=== PATIENT | female | born 1955 | race Caucasian/White ===

== ENCOUNTER 2019-04-03 13:15 | Inpatient (IN) ==
[2019-04-03] MEDS ORDERED: ASPIRIN PO ONE (13:33)
[2019-04-03] MEDS ORDERED: DUONEB (A & A) ONE (13:52)
[2019-04-03] MEDS ORDERED: DUONEB (A & A) INH ONE (14:02)
--- NOTE | 2019-04-03 14:24 | Diag Imaging Result Doc PS360 ---
CHEST-PORTABLE - 04/03/2019 INDICATION: sob COMPARISON: None FINDINGS: There is cardiomegaly and pulmonary vascular congestion. There is probably mild interstitial pulmonary edema. No pneumothorax or large pleural effusion. IMPRESSION: Cardiomegaly and mild pulmonary edema. Electronically signed by Aniket Lind 04/03/2019 2:22 PM
--- NOTE | 2019-04-03 14:40 | EKG Report ---
Test Performed on : 04/03/2019 1:49:58 PM Test Reason : sob Blood Pressure : / mmHG Vent. Rate : 083 BPM Atrial Rate : 089 BPM P-R Int : 000 ms QRS Dur : 074 ms QT Int : 372 ms P-R-T Axes : 000 086 103 degrees QTc Int : 437 ms Atrial fibrillation. Septal infarct , age undetermined Abnormal ECG No previous ECGs available Unconfirmed Result
[2019-04-03 14:41] LABS: BE 4.9 mmoll (-3.0-3.0); BLOOD TYPE ARTERIAL; METHB 1.1 % (0.0-1.5); PCO2(98.6) 49 mmHg (35-45); SAMPLE BLOOD; SAO2 76.3 % (95.0-100.0); THB 18.6 g/dL (11.5-17.4); pH(98.6) 7.41 (7.35-7.45)
[2019-04-03 14:45] LABS: HCO3-(ACT) 27.7 mmoll (20.0-26.0); O2HB 69.2 % (95.0-99.0); PO2(98.6) 35 mmHg (60-100)
[2019-04-03 14:46] LABS: ALLEN TEST YES; MODALITY ROOM AIR
[2019-04-03 15:05] LABS: BASO# 0.07 X1000 (0.0-0.2); BASO% 1.1 % (0.0-0.8); EOS# 0.04 X1000 (0.0-0.7); EOS% 0.6 % (0.0-10.0); HEMOGLOBIN 17.4 g/dL (12.0-16.0); IMM GRAN# 0.02 X1000 (0.0-0.04); IMM GRAN% 0.3 % (0.0-0.5); LYMPH# 2.39 X1000 (1.2-3.4); LYMPH% 37.2 % (20.5-51.1); MCH 31.1 PG (27-31); MCHC 31.1 g/dL (33-37); MCV 100.2 FL (81-99); MONO# 0.86 X1000 (0.11-0.59); MONO% 13.4 % (1.7-9.3); NEUT# 3.05 X1000 (1.4-6.5); NEUT% 47.4 % (42.2-75.2); PLT 128 X1000 (130-400); RBC 5.59 XMIL (4.2-5.4); RDW 21.5 % (11.5-14.5); WBC 6.43 X1000 (4.8-10.8)
[2019-04-03 15:15] LABS: INR 1.02; PROTIME 13.9 Seconds (11.0-16.0)
[2019-04-03 15:16] LABS: PTT 32.9 Seconds (22.3-41.8)
[2019-04-03 15:25] LABS: AGAP 13; ALBUMIN 3.8 g/dL (3.5-5.0); ALKALINE PHOSPHATASE 82 U/L (32-104); BUN 10 mg/dL (8-22); CALCIUM 8.7 mg/dL (8.8-10.2); CHLORIDE 100 mmol/L (98-107); CK PROFILE 32 U/L (24-173); COSMO 278; CREATININE 0.4 mg/dL (0.5-0.9); ESTIMATED GFR > 60; GLUCOSE 129 mg/dL (70-104); GOT 18 U/L (10-30); GPT 9 U/L (10-36); POTASSIUM 3.9 mmol/L (3.5-5.1); SODIUM 139 mmol/L (136-145); TCO2 27 mmol/L (25-35); TOTAL PROTEIN 6.6 g/dL (6.3-8.3)
[2019-04-03 16:05] LABS: INFLUENZA A NEGATIVE (NEGATIVE); INFLUENZA B NEGATIVE (NEGATIVE)
--- NOTE | 2019-04-03 16:41 | PROVIDER DOCUMENTATION ---
This chart was entered by Antonella Garcia Scribe, acting as scribe for Alvina Olivas MD. HPI-Respiratory General - General Chief Complaint: SEPSIS ALERT Stated Complaint: COUGH / SOB Time Seen by Provider: 04/03/19 13:33 Source: patient Allergies/Adverse Reactions: Patient Allergies Allergy/AdvReac Type Severity Reaction Status Date / Time No Known Allergies Allergy Verified 04/03/19 13:31 Home Medications: Home Medication List Medication Instructions Recorded Confirmed Last Taken Type Apixaban [Eliquis] 5 mg PO DAILY 04/03/19 04/03/19 04/03/19 History Diltiazem C.d. [Cardizem C.d] 120 mg PO DAILY 04/03/19 04/03/19 04/03/19 History Escitalopram [Lexapro] 10 mg PO DAILY 04/03/19 04/03/19 04/03/19 History Furosemide [Lasix] 20 mg PO DAILY 04/03/19 04/03/19 04/03/19 History Levothyroxine [Synthroid] 125 microgm PO DAILY 04/03/19 04/03/19 04/03/19 History Losartan [Cozaar] 25 mg PO DAILY 04/03/19 04/03/19 04/03/19 History Metformin [Glucophage] 500 mg PO DAILY 04/03/19 04/03/19 04/03/19 History PRAVAstatin [Pravachol] 40 mg PO DAILY 04/03/19 04/03/19 04/03/19 History Potassium Chloride 20 meq PO DAILY 04/03/19 04/03/19 04/03/19 History - History of Present Illness-Resp Nature of Presenting Problem: Patient is a 63 year old female who presents with shortness of breath. States headache and cough with shortness of breath. Patient's O2 sat was 81% on room air on arrival to ED. Denies chest pain. Reports she is a smoker. History of CHF. Quality of Pain: reports: none Severity in ED: reports: moderate Onset/Duration: reports: gradual Timing: reports: still present Cough Quality/Degree: reports: moderate Current Respiratory Medication Therapy: Initiated see nurses note Associated Symptoms: reports: cough, headache, shortness of breath Similar Symptoms Previously?: Yes Recently seen or treated by another doctor?: No Review of Systems - Adult - REVIEW OF SYSTEMS - ADULT Constitutional: reports: no symptoms reported Eyes: reports: no symptoms reported Ears, Nose, Mouth & Throat: reports: no symptoms reported Cardiovascular: reports: no symptoms reported Respiratory: reports: see HPI, cough, shortness of breath. denies: wheezing Gastrointestinal: reports: no symptoms reported Genitourinary: reports: no symptoms reported Musculoskeletal: reports: no symptoms reported Integumentary: reports: no symptoms reported Neurological: reports: see HPI, headache/migraines (BARCENAS). denies: dizziness/vertigo, syncope Psychiatric: reports: no symptoms reported Endocrine: reports: no symptoms reported Hematologic/Lymphatic: reports: no symptoms reported Allergic/Immunologic: reports: no symptoms reported All Other Systems: Reviewed and Negative Past History - Adult - PAST MEDICAL HISTORY-ADULT Review of Records: reports: Old Records Reviewed, Nursing Assessment Review, Med ications Reviewed, Social history reviewed & non-contributory. Major Childhood Illnesses: reports: denies history Cardiovascular: reports: CHF Respiratory: reports: denies history Gastrointestinal: reports: denies history Obstetrical/Gynecological: reports: denies history Genitourinary: reports: denies history Musculoskeletal: reports: denies history Neurological: reports: denies history Endocrine/Immune: reports: denies history Other Conditions: reports: denies history - PRIOR SURGERIES/PROCEDURES Surgical/Procedure History: reports: reviewed, not pertinent - IMMUNIZATION STATUS Childhood Immunizations: See Nurse Assessment Flu Vaccine: See Nurse Assessment - FAMILY HISTORY Family History: reviewed, not pertinent - SOCIAL HISTORY Smoking: cigarettes, less than 1 pack/day Provider spent 3-5 mins advising pt. on dangers of tobacco.: Discussed manners to quit use, and f/u contacts for add'l counseling. Substance Use: denies Living Situation: family Physical Exam-General - PHYSICAL EXAM-ADULT Initial Vital Signs Reviewed: Yes - CONSTITUTIONAL General Appearance: alert, no apparent distress. negative: lethargic - HEAD, EARS, NOSE, MOUTH & THROAT HENMT: normocephalic/atraumatic, moist mucous membranes - RESPIRATORY Respiratory: chest non-tender, rales (diffuse bilaterally.). negative: wheezing - CARDIOVASCULAR Cardiovascular: regular rate, rhythm, systolic murmur (S3). negative: tachycardia - GASTROINTESTINAL (ABDOMEN) Abdominal Exam: normal bowel sounds, non tender, soft - MUSCULOSKELETAL Extremity: non-tender, normal inspection. negative: pedal edema - SKIN Integumentary: normal color, normal turgor, warm/dry - NEUROLOGIC Neurologic: grossly normal - PSYCHIATRIC Psych/Mental Status: normal mood/affect, normal thought content, normal thought process, oriented x 3 Progress - PLAN OF CARE/RESULTS Progress/Plan/Lab Results: Vital Signs - 8 hr 04/03/19 13:27 04/03/19 13:35 04/03/19 14:02 Temperature 98 F 98.4 F Pulse Rate 91 H 86 75 Respiratory Rate 18 20 24 Blood Pressure 102/68 121/94 O2 Sat by Pulse Oximetry 82 L 98 94 L 04/03/19 14:28 Temperature Pulse Rate 88 Respiratory Rate 15 Blood Pressure 121/94 O2 Sat by Pulse Oximetry 95 Laboratory Results - last 24 hr 04/03/19 04/03/19 04/03/19 13:36 14:50 14:50 WBC RBC Hgb Hct MCV MCH MCHC RDW Std Deviation Plt Count MPV Immature Gran % (Auto) Neut % (Auto) Lymph % (Auto) [place] % (Auto) Eos % (Auto) Baso % (Auto) Immature Gran # (Auto) Neut # (Auto) Lymph # (Auto) [place] # (Auto) Eos # (Auto) Baso # (Auto) PT INR PTT (Actin FS) Specimen Type ARTERIAL Sample Site R RADIAL pH 7.41 pCO2 49 H pO2 35 L* HCO3 27.7 H Base Excess 4.9 H Oxyhemoglobin 69.2 L* ABG O2 Sat (Calculated) 18.0 ABG O2 Saturation 76.3 L ABG Carboxyhemoglobin 8.20 H* ABG Methemoglobin 1.1 Erick Test YES A-a O2 Difference 53.0 Total Hemoglobin 18.6 H Lactate 1.20 Blood Gas Modality ROOM AIR FiO2 % 21.0 Sodium 139 Potassium 3.9 Chloride 100 Carbon Dioxide 27 Anion Gap 13 BUN 10 Creatinine 0.4 L Estimated GFR/1.73 m2 > 60 BUN/Creatinine Ratio 25 Glucose 129 H Calculated Osmolality 278 Calcium 8.7 L Total Bilirubin 0.70 AST 18 ALT 9 L Alkaline Phosphatase 82 Creatine Kinase 32 Troponin T High Sens Qmx-H-Lqpzspxhain Pept 1212 H Total Protein 6.6 Albumin 3.8 Globulin 3.0 Albumin/Globulin Ratio 1.0 Plasma Lactate Influenza A (Rapid) Influenza B (Rapid) 04/03/19 04/03/19 04/03/19 14:50 14:50 14:50 WBC 6.43 RBC 5.59 H Hgb 17.4 H Hct 56.0 H MCV 100.2 H MCH 31.1 H MCHC 31.1 L RDW Std Deviation 21.5 H Plt Count 128 L MPV 11.0 H Immature Gran % (Auto) 0.3 Neut % (Auto) 47.4 Lymph % (Auto) 37.2 [place] % (Auto) 13.4 H Eos % (Auto) 0.6 Baso % (Auto) 1.1 H Immature Gran # (Auto) 0.02 Neut # (Auto) 3.05 Lymph # (Auto) 2.39 [place] # (Auto) 0.86 H Eos # (Auto) 0.04 Baso # (Auto) 0.07 PT 13.9 INR 1.02 PTT (Actin FS) 32.9 Specimen Type Sample Site pH pCO2 pO2 HCO3 Base Excess Oxyhemoglobin ABG O2 Sat (Calculated) ABG O2 Saturation ABG Carboxyhemoglobin ABG Methemoglobin Erick Test A-a O2 Difference Total Hemoglobin Lactate Blood Gas Modality FiO2 % Sodium Potassium Chloride Carbon Dioxide Anion Gap BUN Creatinine Estimated GFR/1.73 m2 BUN/Creatinine Ratio Glucose Calculated Osmolality Calcium Total Bilirubin AST ALT Alkaline Phosphatase Creatine Kinase Troponin T High Sens 10 Kzb-W-Sdyihpfuipf Pept Total Protein Albumin Globulin Albumin/Globulin Ratio Plasma Lactate Influenza A (Rapid) Influenza B (Rapid) 04/03/19 04/03/19 14:50 15:37 WBC RBC Hgb Hct MCV MCH MCHC RDW Std Deviation Plt Count MPV Immature Gran % (Auto) Neut % (Auto) Lymph % (Auto) [place] % (Auto) Eos % (Auto) Baso % (Auto) Immature Gran # (Auto) Neut # (Auto) Lymph # (Auto) [place] # (Auto) Eos # (Auto) Baso # (Auto) PT INR PTT (Actin FS) Specimen Type Sample Site pH pCO2 pO2 HCO3 Base Excess Oxyhemoglobin ABG O2 Sat (Calculated) ABG O2 Saturation ABG Carboxyhemoglobin ABG Methemoglobin Erick Test A-a O2 Difference Total Hemoglobin Lactate Blood Gas Modality FiO2 % Sodium Potassium Chloride Carbon Dioxide Anion Gap BUN Creatinine Estimated GFR/1.73 m2 BUN/Creatinine Ratio Glucose Calculated Osmolality Calcium Total Bilirubin AST ALT Alkaline Phosphatase Creatine Kinase Troponin T High Sens Xct-J-Apjawdvykwv Pept Total Protein Albumin Globulin Albumin/Globulin Ratio Plasma Lactate 1.1 Influenza A (Rapid) NEGATIVE Influenza B (Rapid) NEGATIVE Orders Category Date Time Status Cardiac Monitoring DIRECTED Care 04/03/19 13:34 Active NEWS Score >or=5:Order NEWS Bundle S.O. NOW Care 04/03/19 13:36 Active Oxygen Therapy- ED Nursing DIRECTED Care 04/03/19 13:34 Active Saline Loc NOW Care 04/03/19 13:34 Active CHEST-PORTABLE [RAD] Stat Exams 04/03/19 14:10 Completed ABG [RESP] Routine Lab 04/03/19 13:36 Completed CBC WITH ELECTRONIC DIFF [HEME] Stat Lab 04/03/19 14:50 Completed CK PROFILE [SP CHEM] Stat Lab 04/03/19 14:50 Completed COMPREHENSIVE METABOLIC PANEL [CHEM] Stat Lab 04/03/19 14:[address] Stat Lab 04/03/19 15:37 Completed LACTATE, PLASMA [CHEM] Stat Lab 04/03/19 14:50 Completed PRO B-NATRIURETIC PEPTIDE Stat Lab 04/03/19 14:50 Completed PROTIME WITH INR [COAG] Stat Lab 04/03/19 14:50 Completed PTT [COAG] Stat Lab 04/03/19 14:50 Completed TROPONIN T HIGH SENSITIVITY Stat Lab 04/03/19 14:50 Completed Albuterol 2.5MG/Ipratrop 0.5MG [Duoneb (A & A)] Med 04/03/19 13:52 Discontinued 6 ml .ROUTE .STK-MED ONE Albuterol 2.5MG/Ipratrop 0.5MG [Duoneb (A & A)] Med 04/03/19 14:02 Discontinued 6 ml INH NOW ONE Aspirin Med 04/03/19 13:33 Discontinued 325 mg PO NOW ONE Aerosol Treatments Routine Oth 04/03/19 14:02 Completed Aerosol Treatments Stat Oth 04/03/19 14:02 Completed CP/SOB/Palp >45 yrs of Age Stat Oth 04/03/19 13:33 Ordered O2 Per Protocol Stat Oth 04/03/19 14:02 Active EKG [EKG] Stat Ther 04/03/19 13:34 Draft Transfer/Admit Order [TRANSFER] Routine Transfer 04/03/19 16:15 Ordered Result Diagrams: 04/03/19 14:50 04/03/19 14:50 - REASSESSMENT Reassessment #1 Time Reassessed: 14:25 Status: improving (O2 sat now >93%) Reassessment #2 Time Reassessed: 16:40 Status: improving (Patient is improved but becomes hypoxic with conversation) - EKG 1 Time of EKG reading by physician:: 13:49 EKG Read and Signed by:: Alvina Olivas EKG Interpretation (*Must complete 3 of following elements*): Abnormal Rate: 83 Rhythm: atrial fibrillation [place]: normal Comments: septal infarct, age undetermined - XRAY 1 XRAY Study: Chest Impression: See EMR Report ( CHEST-PORTABLE - 04/03/2019 INDICATION: sob COMPARISON: None FINDINGS: There is cardiomegaly and pulmonary vascular congestion. There is probably mild interstitial pulmonary edema. No pneumothorax or large pleural effusion. IMPRESSION: Cardiomegaly and mild pulmonary edema. Electronically signed by Aniket Lind 04/03/2019 2:22 PM 04/03/19 1422 Interpreting Physician: Aniket Lind MD Dictated Date/Time: 04/03/19 1421 cc: Alvina Olivas MD; Genna Ward MD) - CONSULTS/PCP/HOSPITALIST Notification #1 *Consult/PCP/Hospitalist*: Dr. Alvarado Time Discussed: 16:39 Consult Disposition: Admit Departure - Departure Date of Disposition Decision: 04/03/19 Time of Disposition Decision: 16:39 DIAGNOSIS: Hypoxia CHF exacerbation Qualifiers: Heart failure type: unspecified Qualified Code(s): I50.9 - Heart failure, unspecified Disposition: ADMITTED INPATIENT 09 Certified Medical Emergency: Emergent Condition: Stable Referrals and Follow-Ups: eGnna Ward MD [Primary Care Provider] - - Critical Care Note This patient required my direct & personal management of CC.: No Attestation - Physician/ REJI Attestation Patient care was provided by Advanced Practice Provider:: No The physician spent face to face time with patient:: Yes Advanced Practice Provider documentation review:: Supervising physician onsite and consulted in the evaluation and care of this patient. The physician did have a face to face encounter with the patient. This chart was documented by the indicated scribe, (Antonella Garcia Scribe) and accurately reflects the services I performed and decisions made by Brendon welch Carisa L., MD, as attested by the provider's signature.
--- NOTE | 2019-04-03 17:32 | HISTORY AND PHYSICAL ---
PRIMARY CARE PHYSICIAN: Dr. Genna Ward. CHIEF COMPLAINT: Shortness of breath with room O2 saturation on arrival 82%. HISTORY OF PRESENT ILLNESS: This is a 63-year-old female who presents to [facility] ER with complaints of shortness of breath that has progressively worsened over the last several days. When she arrived to the emergency room her O2 saturation on room air was 82%. She does have known history of congestive heart failure. Her proBNP was 1212, O2 was applied and she is now saturating 95 to 98 percent on 3 L via nasal cannula and will be admitted for further evaluation and treatment. PAST MEDICAL HISTORY: CHF, hypothyroidism, diabetes type 2 and hyperlipidemia, atrial fibrillation. PAST SURGICAL HISTORY: None. FAMILY HISTORY: Reviewed and noncontributory. SOCIAL HISTORY: She currently lives with family. She smokes 1 pack of cigarettes a day used to be a 2 pack of cigarettes a day but has decreased and she has been a smoker since she was 20 years old. Denies any alcohol or illicit drug use. ALLERGIES: She has no known drug allergies. HOME MEDICATIONS: She takes Eliquis 5 mg p.o. daily, Cardizem CD 120 mg p.o. daily, Lexapro 10 mg p.o. daily, Lasix 20 mg p.o. daily will be held, Synthroid 125 mcg p.o. daily, losartan 25 mg p.o. daily, metformin 500 mg p.o. daily, potassium 20 mEq p.o. daily and pravastatin 40 mEq p.o. daily. LABORATORY DATA: Showed a white blood cell count 6.43, hemoglobin 17.4, hematocrit 56, platelets 128,000, PT and INR of 13.9, 1.02. ABG with a pH of 7.41, pCO2 of 49, PO2 35, bicarb 27.7 and this was on room air. Sodium 139, potassium 3.9, chloride 100, CO2 of 27, BUN of 10, creatinine 0.4, glucose 129, creatine kinase of 32, troponin T has sensitivity of 10. ProBNP of 1212, plasma lactate 1.1. Influenza A and B were both negative. Chest x-ray showed cardiomegaly and mild pulmonary edema. EKG showed atrial fibrillation at 83. REVIEW OF SYSTEMS: She denied any fever, chills, blurred vision, dizziness, chest pain, coughing. She had shortness of breath, denied any abdominal pain, constipation, diarrhea, burning or hurting with urination and she does have swelling to bilateral lower extremities. PHYSICAL EXAMINATION: On arrival she had a temperature of 98 degrees, pulse 91, respirations 18, blood pressure 102/68 saturating 82% on room air, currently saturating 94 to 98 percent on 3 L via nasal cannula. GENERAL: This is a 63-year-old female who is lying in the bed and answers questions appropriately. HEENT: Normocephalic, atraumatic. Normal ENT inspection. Oropharynx and nares are clear. Pupils are equal, round, and reactive to light, accommodation. Extraocular movements are intact. NECK: Normal inspection, normal range of motion. LUNGS: Clear to auscultation bilaterally with equal lung expansion and chest wall movement. On arrival she did have some rales diffuse bilaterally and currently has O2 via nasal cannula currently in use. HEART: Systolic murmur, S3. No rubs or gallops, some trace bilateral lower extremity edema. ABDOMEN: Soft, nontender, nondistended. Bowel sounds are present x4 quadrants. MUSCULOSKELETAL: She had 5/5 strength x4 extremities. NEUROLOGICAL: The cranial nerves 2-12 appear grossly intact. ASSESSMENT: 1. An acute congestive heart failure exacerbation. 2. Acute respiratory failure. 3. Diabetes type 2. 4. Tobacco abuse. 5. Atrial fibrillation rate controlled. 6. Diabetes type 2. PLAN: She will be admitted to the medical unit, placed on telemetry, O2 per protocol, healthy heart diabetic diet. Will check an echocardiogram, place on Lasix 40 mg IV q.12, continue her home medications. Recheck CBC, BMP in the a.m. Further orders after seen by attending. Dictated by ELOY Martinez for Ramón Alvarado MD cc: MD Ramón Ackerman MD
[2019-04-03] MEDS ORDERED: ZOFRAN IV PRN (17:46)
[2019-04-03] MEDS ORDERED: TYLENOL PO PRN (17:46)
[2019-04-03] MEDS: LASIX IV SCH (18:50)
--- NOTE | 2019-04-03 20:29 | HISTORY AND PHYSICAL ---
ADDENDUM: Patient seen and examined by myself. Full note dictated and discussed with nurse practitioner. Patient presented to the hospital with increased cough and congestion, increased work of breathing, shortness of breath and orthopnea. She was noted to have an O2 saturation at 82% on room air upon arrival to the ER. Does not use oxygen currently at home. Does have a history of congestive heart failure, diabetes and hypothyroidism as well as atrial fibrillation. Currently, she is awake, alert. She is on oxygen, 3 L. Breathing is improved after Lasix. We are going to admit her to the hospital, place her on Lasix, oxygen, check an echocardiogram, and we will follow. cc: Ramón Alvarado MD
[2019-04-04] MEDS: LASIX IV SCH (06:13)
[2019-04-04 06:50] LABS: BASO# 0.04 X1000 (0.0-0.2); BASO% 0.4 % (0.0-0.8); EOS# 0.06 X1000 (0.0-0.7); EOS% 0.7 % (0.0-10.0); HEMATOCRIT 56.8 % (37.0-47.0); HEMOGLOBIN 17.4 g/dL (12.0-16.0); IMM GRAN# 0.02 X1000 (0.0-0.04); IMM GRAN% 0.2 % (0.0-0.5); LYMPH# 1.66 X1000 (1.2-3.4); LYMPH% 18.7 % (20.5-51.1); MCHC 30.6 g/dL (33-37); MCV 101.1 FL (81-99); MONO# 0.67 X1000 (0.11-0.59); MONO% 7.5 % (1.7-9.3); MPV 11.4 FL (7.4-10.4); NEUT# 6.45 X1000 (1.4-6.5); NEUT% 72.5 % (42.2-75.2); PLT 118 X1000 (130-400); RBC 5.62 XMIL (4.2-5.4); RDW 21.2 % (11.5-14.5)
[2019-04-04 07:24] LABS: AGAP 14; BUN 10 mg/dL (8-22); CALCIUM 8.5 mg/dL (8.8-10.2); CHLORIDE 99 mmol/L (98-107); COSMO 284; CREATININE 0.4 mg/dL (0.5-0.9); ESTIMATED GFR > 60; GLUCOSE 137 mg/dL (70-104); POTASSIUM 3.5 mmol/L (3.5-5.1); SODIUM 142 mmol/L (136-145); TCO2 29 mmol/L (25-35)
[2019-04-04] MEDS: SYNTHROID PO SCH ×2 (08:14)
[2019-04-04] MEDS: LEXAPRO PO SCH (08:14)
[2019-04-04] MEDS: GLUCOPHAGE PO SCH (08:14)
[2019-04-04] MEDS: COZAAR PO SCH (08:14)
[2019-04-04] MEDS: CARDIZEM CD PO SCH (08:14)
[2019-04-04] MEDS ORDERED: PRAVACHOL PO SCH (09:00)
[2019-04-04] MEDS ORDERED: KLOR-CON PO SCH (09:00)
[2019-04-04] MEDS ORDERED: ELIQUIS PO SCH (09:00)
[2019-04-04] MEDS ORDERED: LASIX IV SCH (09:00)
[2019-04-04] MEDS: KLOR-CON PO SCH (09:07)
[2019-04-04] MEDS ORDERED: PNEUMOVAX 23 IM ONE (10:00)
--- NOTE | 2019-04-04 15:56 | ECHO REPORT ---
ORDER DATE: 04/04/2019 INTERPRETING PHYSICIAN: Paco Spann MD. INDICATION: CHF exacerbation. M-MODE MEASUREMENTS: Left ventricle end diastole: 3.4 cm. Left ventricle end systole: 2.0 cm. Posterior wall: 1.2 cm. Interventricular septum: 1.2 cm. Left atrium: 5.5 cm. Aortic diameter: 2.9 cm. SUMMARY OF 2-DIMENSIONAL IMAGIN. Left ventricular function appears to be normal, ejection fraction estimated at 60%. 2. The left atrium is significantly enlarged. The index is about 37 mL/m2 body surface area. 3. The aortic valve opens normally. Color flow mapping unremarkable. 4. The mitral valve opens normally. Color flow mapping unremarkable. 5. The pulse wave Doppler of mitral inflow shows a single-filling wave. 6. The patient is in atrial fibrillation. 7. Tissue Doppler of septal and lateral mitral annulus averages 9 cm. 8. Diastolic function may be normal. 9. Pulse wave Doppler of pulmonary venous flow is normal. 10.The tricuspid valve shows mild degree of regurgitation. 11.Pulmonary pressure estimated at 44 mmHg. 12.The pulmonic valve is unremarkable. 13.There is no pericardial effusion, no mass, and no thrombus. 14.There is a prominent epicardial fat pad. 15.The right-sided chambers show enlargement of the right atrium. Clinical correlation is recommended. cc: MD Kenia Cardenas CRNP
[2019-04-04] MEDS: ELIQUIS PO SCH (21:08)
--- NOTE | 2019-04-04 22:14 | PROGRESS NOTE ---
DATE: 04/04/2019 SUBJECTIVE: Patient notes overall she is starting to feel better. Shortness of breath is improving. She has been able to ambulate to the restroom. PHYSICAL EXAMINATION: Temp 98.3, pulse 99, respiratory rate 18, BP 113/78.General: Patient is awake, alert, pleasant. She is in minimal distress. HEENT: Normocephalic. Neck: Supple. Cardiovascular: Regular rate. Chest: Much improved, better air movement. Abdomen: Soft, nondistended. Extremities: Moves all extremities. ASSESSMENT: 1. Acute hypoxic respiratory failure. She is still on oxygen but is improved. She is able to wean down to 2 L. 2. Diabetes. 3. Atrial fibrillation, rate controlled. 4. Chronic tobacco abuse. PLAN: We will continue patient in the hospital. Continue Lasix. Will decrease as tolerated. Hopefully home in the next one or two. cc: Ramón Alvarado MD
[2019-04-05] MEDS: SYNTHROID PO SCH ×2 (06:08)
[2019-04-05] MEDS: KLOR-CON PO SCH (08:48)
[2019-04-05] MEDS: ELIQUIS PO SCH ×2 (08:48→21:30)
[2019-04-05] MEDS: CARDIZEM CD PO SCH (08:48)
[2019-04-05] MEDS: GLUCOPHAGE PO SCH (08:48)
[2019-04-05] MEDS: LEXAPRO PO SCH (08:48)
--- NOTE | 2019-04-05 09:00 | Diag Imaging Result Doc PS360 ---
EXAM: CHEST-PORTABLE - 04/05/2019 HISTORY: dyspnea TECHNIQUE: Portable chest COMPARISON: 04/03/2019 FINDINGS: There is stable cardiomegaly. There is stable vascular congestion. There is mild increased atelectasis or edema at the right base. There are possible tiny pleural effusions. There is no evidence of pneumothorax. IMPRESSION: Stable cardiomegaly and vascular congestion. Mild increased atelectasis or edema at right base. Electronically signed by Christophe Coleman 04/05/2019 8:58 AM
[2019-04-05] MEDS: COZAAR PO SCH (09:55)
[2019-04-05] MEDS ORDERED: PRAVACHOL PO SCH (21:00)
--- NOTE | 2019-04-05 22:10 | PROGRESS NOTE ---
DATE: 04/05/2019 SUBJECTIVE: The patient has no complaints. She states that she is wanting to go home, although, she is still on oxygen. States she does have occasional episodes where she is tired and fatigued, but this is short lasted. PHYSICAL EXAMINATION: Vital signs: Temperature 97.9, pulse 91, respiratory rate 18, BP 94/74, sat 92% on 3 L. General: Patient is awake, pleasant, in no distress. Cardiovascular: Regular rate. Chest: Clear, nonlabored. Abdomen: Soft nondistended. Neurologic: No changes. ASSESSMENT: 1. Acute hypoxic respiratory failure. 2. Acute congestive heart failure with exacerbation, resolved. 3. Acute hypoxia. 4. Diabetes. 5. Atrial fibrillation. PLAN: We will continue patient in the hospital. Given that her O2 sats are still elevated at 82% on 3 L and that she has had a couple of 2 second pauses while she was on telemetry, we are going to continue her in the hospital today and follow her on telemetry. We will attempt to wean her oxygen as tolerated. Further orders as needed. We will ask Cardiology to evaluate. cc: Ramón Alvarado MD
[2019-04-06] MEDS: SYNTHROID PO SCH ×2 (06:30)
[2019-04-06] MEDS ORDERED: TYLENOL PO PRN (07:00)
[2019-04-06] MEDS ORDERED: SYNTHROID PO SCH (09:00)
[2019-04-06] MEDS: ELIQUIS PO SCH (09:26)
[2019-04-06] MEDS: COZAAR PO SCH (09:26)
[2019-04-06] MEDS: GLUCOPHAGE PO SCH (09:26)
[2019-04-06] MEDS: KLOR-CON PO SCH (09:26)
[2019-04-06] MEDS: LEXAPRO PO SCH (09:26)
[2019-04-06 11:57] VITALS: BP 100/77
--- NOTE | 2019-04-06 21:28 | DISCHARGE SUMMARY ---
ADMISSION DATE: 04/03/2019 DISCHARGE DATE: 04/06/2019 PRIMARY CARE PHYSICIAN: Dr. Genna Ward. ADMISSION DIAGNOSES: 1. Acute congestive heart failure exacerbation. 2. Acute respiratory failure. 3. Diabetes type 2. 4. Tobacco abuse. 5. Atrial fibrillation, rate controlled. DISCHARGE DIAGNOSES: 1. Acute hypoxic respiratory failure, resolved. 2. An acute congestive heart failure exacerbation, resolved. 3. Diabetes type 2. 4. Atrial fibrillation rate controlled summary. SUMMARY OF FINDINGS: This is a 63-year-old female who presented to the ER with complaints of shortness of breath that progressively worsened. When she arrived, her O2 saturation on room air was 82%. Her proBNP was 1212. We applied O2 and her saturations came up to 95 to 98 percent on 3 L via nasal cannula. She was admitted. We gave her IV diuresis. We checked an echocardiogram on 04/04/2019 that showed an estimated ejection fraction of 60% with a normal left ventricular function. She is feeling much better and it is felt that she can safely be discharged home. DISCHARGE MEDICATIONS: Will include Eliquis 5 mg p.o. b.i.d., citalopram 10 mg p.o. daily, losartan 25 mg p.o. daily, metformin 500 mg p.o. daily, potassium 40 mEq p.o. daily, pravastatin 40 mg p.o. daily, Cardizem 30 mg p.o. b.i.d., Lasix 40 mg p.o. daily, and Synthroid 125 mcg p.o. daily. FOLLOWUP: She will need to follow up with her primary care physician in 1 to 2 weeks and call their office for an appointment. TIME SPENT: 35 minute discharge. Dictated by ELOY Martinez for Ramón Alvarado MD cc: ELOY Martinez MD
--- NOTE | 2019-04-07 05:43 | DISCHARGE SUMMARY ---
ADMISSION DATE: 04/03/2019 DISCHARGE DATE: 04/06/2019 ADDENDUM: Patient seen and examined by myself. Full note dictated and discussed with nurse practitioner. On discharge, patient is awake, alert, pleasant, in no distress. Notes that she is feeling much better. The patient will be discharged home. She will follow up outpatient with treatment facility of choice. We will discharge her with oxygen. Asked that she check her blood pressure each day and carry this log with her. The patient notes that she feels effectively back to her baseline. cc: Ramón Alvarado MD
== END 2019-04-06 14:31 | disposition home or self-care (01) | DRG 291 ==
LOC: P.ED 13:15 → P.MEDSURG 17:18
PROVIDERS: ATTEND Family Medicine